=== PATIENT | male | born 1960 | race Caucasian/White ===

== ENCOUNTER 2020-10-12 17:43 | Emergency (ER) | payer BC, SELFPAY ==
[2020-10-12 17:54] VITALS: BP 153/91; PULSE 69; RESP 16; TEMP 36.5; O2SAT 97
--- NOTE | 2020-10-12 18:18 | ED.SKABFB ---
HPI - Skin/Abscess/Foreign Bdy General Chief complaint: Skin/Abscess/Foreign Body Stated complaint: poss shingles Source: patient Mode of arrival: ambulatory Limitations: no limitations History of Present Illness HPI narrative: Patient is a 60-year-old male who presents complaining of itchy rash x3 days to bilateral arms, abdomen and ankles. Patient reports changed laundry detergent earlier this week. He reports using lotion without relief. He denies all other complaints at this time. MD complaint: rash Related Data Home Medications Medication Instructions Recorded Confirmed acidophilus-pectin, citrus 100 cap PO DAILY 10/12/20 10/12/20 [Acidophilus Probiotic] [id number]-vit K 18 tablet PO DAILY 10/12/20 10/12/20 [Adults Multivitamin] Allergies Allergy/AdvReac Type Severity Reaction Status Date / Time No Known Allergies Allergy Verified 10/12/20 17:51 Review of Systems Review of Systems: Narrative: CONSTITUTIONAL: Denies fever, chills, or sweats. EYES: Denies visual changes, redness, or discharge. ENT: Denies rhinorrhea, congestion, sore throat, or otalgia. CARDIOVASCULAR: Denies chest pain, palpitations, or edema. RESPIRATORY: Denies cough or dyspnea. GASTROINTESTINAL: Denies abdominal pain, nausea, vomiting, or diarrhea. GENITOURINARY: Denies dysuria or hematuria. SKIN: Rash to bilateral arms, ankles and abdomen MUSCULOSKELETAL: Denies back pain, joint pain, or myalgia. NEUROLOGIC: Denies headache, numbness, dizziness, or weakness. PSYCHIATRIC: Denies anxiety or depression. [facility] Past Medical History Medical History GERD (gastroesophageal reflux disease) Surgical History Surgical History History of cholecystectomy Family History Family History Other No significant family history Social History Social History (Updated 10/12/20 @ 18:21 by TERESITA Aguirre) Smoking status: Never smoker Alcohol intake: current Substance use: never Living arrangements: with family Occupation/Education: occupation Gender identity (if verbalized by the patient): Male Comments At the time of signature, I have reviewed and agree with nursing past medical, surgical, social, and family history unless otherwise noted. Please see nursing chart for further information. There is no relevant family history pertinent to the presenting complaint. Exam Narrative: Exam Narrative: GENERAL: Well-appearing, well-nourished, and in no acute distress. HEAD: Normocephalic, atraumatic. EYES: EOMI. No redness or drainage. Conjunctiva are normal. ENT: Mucous membranes pink and moist. Nares clear. No rhinorrhea. TMs normal bilaterally. Throat normal. Uvula midline. NECK: AROM. Supple. No lymphadenopathy. CHEST: No respiratory distress. Clear to auscultation. HEART: Regular rate and rhythm. No murmur appreciated. Normal peripheral pulses. GI: Soft, nontender without rebound, or guarding. No distention. Bowel sounds normal in all quadrants. MUSCULOSKELETAL: No bony tenderness. EXTREMITIES: Normal range of motion. No edema. SKIN: Mildly red, raised areas to bilateral arms, abdomen and ankles, no purulent drainage NEURO: No focal deficits. Alert and oriented x3. Gait steady. PSYCH: Normal affect. No signs of depression or anxiety. Course Vital Signs Vital signs: Vital Signs Temperature 36.5 C 10/12/20 17:54 Pulse Rate 69 10/12/20 17:54 Respiratory Rate 16 10/12/20 17:54 Blood Pressure 153/91 H 10/12/20 17:54 Pulse Oximetry 97 10/12/20 17:54 Temperature 36.5 C 10/12/20 17:54 Pulse Rate 69 10/12/20 17:54 Respiratory Rate 16 10/12/20 17:54 Blood Pressure 153/91 H 10/12/20 17:54 Pulse Oximetry 97 10/12/20 17:54 Reviewed. Patient has been instructed to follow-up with his PCP regarding
== END 2020-10-12 18:16 | disposition home or self-care (01) ==
PROVIDERS: Emergency Provider Nurse Practitioner; PCP Internal Medicine
DX: L24.0 Irritant contact dermatitis due to detergents (principal); K21.9 Gastro-esophageal reflux disease without esophagitis
CPT/HCPCS: 99213; G0463

== ENCOUNTER 2021-01-07 10:24 | Observation (INO) | payer BC, SELFPAY ==
--- NOTE | ~2021-01-07 | CT_ITS ---
EXAMINATION: CT abdomen pelvis w con DATE: 01/07/2021 11:49 INDICATION: Upper abdominal pain. Nausea, vomiting, and diarrhea. TECHNIQUE: Computed tomography (CT) of the abdomen and pelvis was performed with 100 mL Omnipaque 350 intravenous contrast. Automated exposure control and iterative reconstruction technique were employe d. The dose-length product was 1336.37 mGy-cm. COMPARISON: None. FINDINGS: The visualized portions of the lung bases demonstrate mild atelectasis. A calcified right l uma nodule is consistent with old granulomatous disease. There are small centrilobular nodules in lef t lower lobe. No pleural effusion. There is a small sliding hiatal hernia. The heart size is normal. No pericardial effusion. The liver and spleen are normal. There are changes of cholecystectomy. The p ancreas and adrenal glands are normal. There are cysts in right kidney measuring up to 2.5 cm. Left k idney is normal. The prostate is mildly enlarged. There are dilated loops of jejunum without focal tr ansition point. The rectum is distended by stool. The appendix is normal. There are no pathologically enlarged lymph nodes. There is no free intraperitoneal fluid. There is a 17 mm sclerotic lesion in r ight ilium, likely a benign bone island. There is moderate lower lumbar spondylosis. IMPRESSION: 1. Small sliding hiatal hernia. 2. Dilated loops of jejunum, likely adynamic ileus. 3. Rectum mildly distended by stool. 4. Small centrilobular nodules in left lung lower lobe, likely inflammation or infection. Reviewed, dictated and finalized at location B.
[2021-01-07 10:35] VITALS: BP 104/87; PULSE 82; RESP 17; TEMP 36.8; O2SAT 97
--- NOTE | 2021-01-07 10:46 | ECG_ITS ---
Measurements Intervals [place] Rate: 74 P: 70 PA: 135 QRS: 4 QRSD: 100 T: -12 QT: 369 QTc: 410 Interpretive Statements SINUS RHYTHM INFERIOR INFARCT, AGE INDETERMINATE BASELINE ARTIFACT- I, II, III, AVF ABNORMAL ECG Electronically Signed On 01-07-2021 12:10:44 CDT by Darrick Ploanco D.O.
[2021-01-07] MEDS: SODIUM CHLORIDE 0.9% IV 1,000 ML 999 ML IV CONT (10:55)
[2021-01-07] MEDS: ONDANSETRON INJ 4 MG/2 ML VIAL IV PUSH ×2 (10:57→20:30)
[2021-01-07 11:01] LABS: Basophils Absolute Auto 0.03 K/mm3 (0.00-0.10); Basophils Percent Auto 0.2 % (0.0-1.0); Eosinophils Absolute Auto 0.08 K/mm3 (0.02-0.50); Eosinophils Percent Auto 0.6 % (1.0-6.0); Hematocrit 44.4 % (40.0-54.0); Hemoglobin 15.3 g/dL (14.0-18.0); Immature Granulocyte Absolute 0.05 K/mm3 (0.00-0.00); Immature Granulocyte Percent A 0.4 % (0.0-0.0); Lymphocytes Absolute Auto 1.46 K/mm3 (1.10-4.50); Mean Corpuscular HGB Conc 34.5 g/dL (32.0-36.0); Mean Corpuscular Hemoglobin 28.3 pg (27.0-31.0); Mean Corpuscular Volume 82.1 fL (78.0-102.0); Mean Platelet Volume 10.2 fl (8.7-11.0); Monocytes Absolute Auto 1.33 K/mm3 (0.10-0.90); Neutrophils Absolute Auto 10.3 K/mm3 (1.7-7.2); Neutrophils Percent Auto 77.8 % (50.0-70.0); Platelet Count Result 214 K/mm3 (150-420); Red Blood Count 5.41 M/mm3 (4.70-6.10); Red Cell Distribution Width 13.1 % (11.6-14.4); White Blood Count 13.3 K/mm3 (4.8-10.8)
[2021-01-07 11:19] LABS: Alanine Aminotransferase 47 U/L (16-63); Albumin Level 3.2 g/dL (3.4-5.0); Alkaline Phosphatase 63 U/L (46-116); Anion Gap 13 mmol/L (8-16); Aspartate Amino Transferase 16 U/L (15-37); Bilirubin,Total 0.4 mg/dL (0.00-1.00); Blood Urea Nitrogen 19 mg/dL (7-18); Calcium 8.7 mg/dL (8.5-10.1); Carbon Dioxide 24 mmol/L (21-32); Chloride 104 mmol/L (98-108); Estimated Glomerular Filt Rate > 60; Glucose 132 mg/dL (70-99); Lipase 102 U/L (73-393); Osmolality Calculated 296 mOsm/kg (285-295); Potassium 3.1 mmol/L (3.5-5.1); Sodium 141 mmol/L (136-145); Total Protein 6.7 g/dL (6.4-8.2); Troponin I 4.2 ng/L (0.00-60.4)
[2021-01-07 11:21] LABS: Lactic Acid Reflex 2.5 mmol/L (0.4-2.0)
--- NOTE | 2021-01-07 12:25 | ED.ABDPAIN ---
HPI - Abdominal Pain General Chief Complaint: Abdominal Pain Stated Complaint: Abdomen Pain Source: patient and family Mode of arrival: ambulatory History of Present Illness HPI narrative: This is a 60-year-old gentleman with no previous past medical history presents from his primary care physician's office with diffuse abdominal pain, crampy with no fever or chills, diffuse with some nausea currently is pain level is tolerable with some some diarrhea no constipation no flank pain no dysuria no chest pain or shortness of breath. Has past surgical history of cholecystectomy. MD elicited complaint: abdominal pain Onset (ago): day(s) Pain Consistency: intermittent Location: diffuse Severity: mild Quality: aching Related Data Home Medications Medication Instructions Recorded Confirmed No Home Medications 01/07/21 01/07/21 Allergies Allergy/AdvReac Type Severity Reaction Status Date / Time No Known Allergies Allergy Verified 10/12/20 17:51 Review of Systems Review of Systems: All systems reviewed & are unremarkable except as noted in HPI and below PMFSH Past Medical History Medical History GERD (gastroesophageal reflux disease) Surgical History Surgical History History of cholecystectomy Family History Family History Other No significant family history Social History Social History (Updated 10/12/20 @ 18:21 by TERESITA Aguirre) Smoking status: Never smoker Alcohol intake: current Substance use: never Gender identity (if verbalized by the patient): Male Exam Const: General: no acute distress HENMT: Head: normal to inspection Eyes: Conjunctivae: conjunctivae normal Pupils: Equal, round and reactive pupils present EOM: EOMs intact bilaterally Neck: Neck: normal visual inspection and no meningeal signs Chest: Chest palpation & inspection: normal inspection of the chest Resp: Effort & Inspection: normal respiratory effort Auscultation: clear to auscultation bilaterally Cardio: Rate: regular rate Rhythm: regular rhythm GI: GI Palp: Yes Soft to palpation and Yes Tenderness to palpation present (GI) : Testes: Testes normal Urinary Catheter: Urinary Catheter: patent and draining Back/Spine/Pelvis: Back: no CVA tenderness Skin: General skin exam: normal color Rashes: no rashes Neuro: General: patient oriented x3, moves all extremities, no meningeal signs and no focal motor deficits Extrem: General: normal to inspection and no pedal edema Psych: Appearance: grossly normal Mental Status: mental status grossly normal Affect: normal affect Course Course Emergency Course: Patient received IV fluids some feels a bit more comfortable and labs and CT scan were reviewed with patient showing possibility of an adynamic ileus and will admit for observation. Vital Signs Vital signs: Vital Signs Temperature 36.8 C 01/07/21 10:35 Pulse Rate 82 01/07/21 10:35 Respiratory Rate 17 01/07/21 10:35 Blood Pressure 104/87 01/07/21 10:35 Pulse Oximetry 97 01/07/21 10:35 Temperature 36.8 C 01/07/21 10:35 Pulse Rate 82 01/07/21 10:35 Respiratory Rate 17 01/07/21 10:35 Blood Pressure 104/87 01/07/21 10:35 Pulse Oximetry 97 01/07/21 10:35 MDM - Abdominal Pain Lab Data Result diagrams: 01/07/21 10:56 01/07/21 10:56 Labs: Lab Results 01/07/21 01/07/21 01/07/21 Range/Units 10:56 10:56 10:56 WBC 13.3 H (4.8-10.8) K/mm3 RBC 5.41 (4.70-6.10) M/mm3 Hgb 15.3 (14.0-18.0) g/dL Hct 44.4 (40.0-54.0) % MCV 82.1 (78.0-102.0) fL MCH 28.3 (27.0-31.0) pg MCHC 34.5 (32.0-36.0) g/dL RDW 13.1 (11.6-14.4) % Plt Count 214 (150-420) K/mm3 MPV 10.2 (8.7-11.0) fl Immature Gran % (Auto) 0.4 H (0.0-0.0) % [place]
[2021-01-07 12:30] LABS: Add Urine Microscopic? NO; Appearance Urine Clear (Clear); Bilirubin Urine Negative (Negative); Blood Urine Negative (Negative); Color Urine Yellow (Yellow); Glucose Urine UA Negative (Negative); Ketones Urine Negative (Negative); Leukocyte Esterase Ur Negative LEU/UL (Negative); Nitrate Urine Negative (Negative); Protein Urine Negative (Negative); Urobilinogen Urine 0.2 mg/dL (0.2-1.0)
[2021-01-07 12:38] VITALS: BP 118/61; PULSE 67; O2SAT 94
[2021-01-07 13:15] VITALS: BMI 34.3
--- NOTE | 2021-01-07 13:15 | ADMGEN ---
This patient, Manan Stoddard, was admitted to 2nd Floor Room 202-2 for adynamic ileus. Patient denies any pain/nausea at admission to floor. Patient/family oriented to hospital policies and general routines including ID bracelet, bed and alarms, visiting hours, pain management, procedures, bathroom and other care routines, personal items, smoking policy, room service/diet, and visiting hours. Information on how to activate the Rapid Response Team has been discussed. Patient/Family are encouraged to report perceived risks to care and to ask questions if they do not understand what they are told or what they should do.
[2021-01-07] MEDS: KCL 20 MEQ/SW 100 ML 100 ML 50 MEQ IVPB (13:37)
[2021-01-07] MEDS: SODIUM CHLORIDE 0.9% IV 1,000 ML 100 ML IV CONT ×2 (13:37→23:32)
[2021-01-07 13:58] LABS: Reflex Lactic Acid Yes or No Add Lactic
--- NOTE | 2021-01-07 15:45 | PM.IMHP ---
H&P: HPI History of Present Illness Date/Time: 01/07/21 15:45 this is a 60-year-old gentleman that presented to our ED with complaints of abdominal pain. Patient has a past medical history of GERD. According to patient Thursday he started to experience abdominal pain while at work and later developed diarrhea. He also noted that he had a decreased appetite, patient also noted that he felt nausea. Patient noted he continued to have abdominal pain with diarrhea and decided to take some Pepto-Bismol assuming it was acid reflux. Afterwards patient noted that his stool remained runny and black in color. Patient continued to have the symptoms and decided to visit his primary care physician today. Imaging was completed and it was determined that the patient has adynamic ileus. Patient WBC 13.3 hemoglobin 15.3 hematocrit 44.4, platelets 214, sodium 141, potassium 3.1, BUN 19, creatinine 1.15, glucose 132, lactic acid 2.5. Patient continues to complain of epigastric pain. The patient denies SOB, CP, palpitation, extremity numbness, lightheadedness, dizziness,, chills, or fever. Patient also noted that for the last month he has been experiencing inconsistent bowel movement patient notes that he would have diarrhea 1 day constipation the next day and increased bowel movements Observation Time spent 60 minutes Chief Complaint: Abdominal pain Review of Systems Review of Systems: Narrative: A 14 organ system Review of Systems was performed and pertinent positives included in the HPI, otherwise remaining ROS is negative. [facility] Past Medical History Medical History GERD (gastroesophageal reflux disease) Surgical History Surgical History History of cholecystectomy Family History Family History Other No significant family history Social History Social History (Updated 10/12/20 @ 18:21 by TERESITA Aguirre) Smoking packs per day: 0.5 Smoking cigarettes per day: 10.0 Years smoked: 2 Smoking pack-years: 1.00 Smoking status: Former smoker Tobacco type: cigarettes Alcohol intake: never Substance use: never Substance use type: does not use Gender identity (if verbalized by the patient): Male Sexual Orientation (if Verbalized by the Patient): Straight or Heterosexual Spiritual care concerns: No Meds Home Medications and Allergies Home Medications Medication Instructions Recorded Confirmed Type No Home Medications 01/07/21 01/07/21 History Allergies Allergy/AdvReac Type Severity Reaction Status Date / Time No Known Allergies Allergy Verified 10/12/20 17:51 Vital Signs Vital Signs - 24 hr 01/07/21 10:35 01/07/21 12:38 Temperature 98.2 F Pulse Rate 82 67 Respiratory Rate 17 Blood Pressure 104/87 118/61 Pulse Oximetry 97 94 Exam Narrative: Exam Narrative: GENERAL: This is a well-nourished, well-developed patient, in no apparent distress. HEAD: normocephalic, atraumatic. EYES: PERRL. Sclera clear/white. Vision is grossly intact. EARS: External ears normal, auditory canals clear and without drainage, TMs normal without perforation. Hearing grossly intact. NOSE: External nose normal with no obvious nasal discharge, nares without redness, no rhinorrhea. THROAT: Mucous membranes moist, posterior pharynx clear. NECK: Neck supple, non-tender without lymphadenopathy, masses or thyromegaly. CARDIOVASCULAR: Regular rate and rhythm without murmurs, gallops, or rubs. RESPIRATORY: Clear to auscultation. Breath sounds equal bilaterally. No wheezes, rales, or rhonchi. GASTROINTESTINAL: Abdomen soft and tender nondistended. Hyperactive bowel sounds. No hepato-splenomegaly, or palpable masses. SKIN: warm, intact with no suspicious lesions or rash, good texture and turgor. NEURO: awake, alert, and oriented to person, [place]
[2021-01-07 15:50] VITALS: BP 130/86; PULSE 64; RESP 18; TEMP 37.7; O2SAT 96
[2021-01-07 16:35] VITALS: PULSE 60
--- NOTE | 2021-01-07 19:30 | PC.NURSE ---
Patient is not experiencing nausea and/or vomiting at this time. experiencing abdominal discomfort at this time but want to wait on pain medication
[2021-01-07 20:00] VITALS: BP 113/75; PULSE 59; RESP 14; TEMP 37; O2SAT 95
--- NOTE | 2021-01-07 20:30 | PC.NURSE ---
Patient experiencing abdominal discomfort. Given zofran to attempt to improve discomfort. Afforded some relief but continues to have discomfort. Has not had BM. telemetry shows sinus bradycardia
--- NOTE | 2021-01-07 22:00 | PC.NURSE ---
Patient requested IV tylenol for pain rated at 5 on scale of 1 to 10. Did not want to take morphine on chance it would worsen symptoms. refused tylenol suppository
[2021-01-07] MEDS: diphenhydrAMINE HCl INJ 50 MG/ML VIAL IV PUSH (22:24)
--- NOTE | 2021-01-07 23:21 | PC.NURSE ---
Patient pain level 0 on FLACC. Appears to be resting. Has not had any BM on this shift. No nausea of vomiting observed.
[2021-01-08] VITALS: BP 113/86; PULSE 45; PULSE 47; RESP 14; TEMP 37; O2SAT 97
--- NOTE | 2021-01-08 00:19 | PC.NURSE ---
Improvement of pain symptoms with IV tylenol. Appears to be resting. VS stable with telemetry showing sinus bradycardia.
--- NOTE | 2021-01-08 01:18 | PC.NURSE ---
Improvement in pain with IV tylenol. No report of nausea or vomiting.
--- NOTE | 2021-01-08 02:17 | PC.NURSE ---
Patient resting. Continues on telemetry showing sinus bradycardia. No nausea or vomiting present.
--- NOTE | 2021-01-08 03:16 | PC.NURSE ---
Patient reports improvement with symptoms. No nausea or vomiting. Pain decreased with abdominal area blow machine tender starch spraying to touch
[2021-01-08 04:00] VITALS: BP 103/70; PULSE 49; PULSE 51; RESP 14; TEMP 36.4; O2SAT 97
--- NOTE | 2021-01-08 04:21 | PC.NURSE ---
Patient had dark BM with foul odor. Part was liquid but solid amount present also . Stool for occult blood collected
[2021-01-08 04:52] LABS: Occult Blood Negative (Negative)
--- NOTE | 2021-01-08 05:36 | PC.NURSE ---
Patient has solid bowel movement. Color was green/brown instead of blackish. No nausea or vomiting. Imporvements in symptoms
[2021-01-08 05:47] LABS: Basophils Absolute Auto 0.03 K/mm3 (0.00-0.10); Basophils Percent Auto 0.4 % (0.0-1.0); Eosinophils Absolute Auto 0.23 K/mm3 (0.02-0.50); Hematocrit 39.1 % (40.0-54.0); Immature Granulocyte Absolute 0.02 K/mm3 (0.00-0.00); Immature Granulocyte Percent A 0.3 % (0.0-0.0); Lymphocytes Absolute Auto 2.48 K/mm3 (1.10-4.50); Mean Corpuscular HGB Conc 33.2 g/dL (32.0-36.0); Mean Corpuscular Hemoglobin 28.1 pg (27.0-31.0); Mean Corpuscular Volume 84.4 fL (78.0-102.0); Mean Platelet Volume 10.5 fl (8.7-11.0); Monocytes Absolute Auto 0.92 K/mm3 (0.10-0.90); Monocytes Percent Auto 11.9 % (2.0-11.0); Neutrophils Absolute Auto 4.1 K/mm3 (1.7-7.2); Neutrophils Percent Auto 52.4 % (50.0-70.0); Platelet Count Result 191 K/mm3 (150-420); Red Blood Count 4.63 M/mm3 (4.70-6.10); Red Cell Distribution Width 13.3 % (11.6-14.4); White Blood Count 7.7 K/mm3 (4.8-10.8)
[2021-01-08 06:09] LABS: Lactic Acid Reflex 0.6 mmol/L (0.4-2.0)
[2021-01-08 06:16] LABS: Alanine Aminotransferase 34 U/L (16-63); Albumin Level 2.7 g/dL (3.4-5.0); Alkaline Phosphatase 52 U/L (46-116); Anion Gap 9 mmol/L (8-16); Aspartate Amino Transferase 11 U/L (15-37); Bilirubin,Total 0.5 mg/dL (0.00-1.00); Blood Urea Nitrogen 14 mg/dL (7-18); Carbon Dioxide 26 mmol/L (21-32); Chloride 108 mmol/L (98-108); Estimated CRCL calculation 91 ml/min; Estimated Glomerular Filt Rate > 60; Glucose 101 mg/dL (70-99); Osmolality Calculated 296 mOsm/kg (285-295); Potassium 3.4 mmol/L (3.5-5.1); Sodium 143 mmol/L (136-145); Total Protein 5.6 g/dL (6.4-8.2)
[2021-01-08 08:00] VITALS: BP 124/71; PULSE 50; PULSE 56; RESP 18; TEMP 36.9; O2SAT 96
[2021-01-08] MEDS: POTASSIUM CHLORIDE 20 MEQ TABLET PO (08:36)
[2021-01-08] MEDS: SODIUM CHLORIDE 0.9% IV 1,000 ML 100 ML IV CONT (08:37)
[2021-01-08 12:00] VITALS: PULSE 51
--- NOTE | 2021-01-08 14:04 | PM.DS ---
DS: Admitting Diagnosis Admitting Diagnosis Admitting Diagnosis: Adynamic Ileus DS: Discharge Diagnosis Discharge Diagnosis (1) Adynamic ileus: Code(s): K56.0 - Paralytic ileus Status: Acute Assessment and Plan: Imaging indicates Dilated loops of jejunum, likely adynamic ileus. Patient will remain n.p.o. Continue pain medication morphine Continue IV fluids Occult blood pending Continue Zofran Lactic acid elevated 2.5 01/08/2021 Pt was started on Full liquids this AM and for lunch he had a regular diet and tolerated both well. Pt denies abdominal pain, states he still has some diarrhea, instructed Pt to f/u with PCP and to increase fiber intake in his diet. (2) GERD (gastroesophageal reflux disease): Code(s): K21.9 - Gastro-esophageal reflux disease without esophagitis Status: Acute Assessment and Plan: Will need to start pantoprazole DS: Summary Hospital Course Hospital Course: Abdominal pain resolved, tolerating food well Time Spent with Patient Time attestation: Total time spent providing and/or coordinating discharge services: < 30 minutes Exam Const: General: cooperative, comfortable, no acute distress, alert and awake Nutritional Appearance: overweight HENMT: Head: normal to inspection and normocephalic Ears: hearing grossly normal bilaterally Eyes: General: appearance normal, both eyes and all related structures Neck: Neck: normal visual inspection and no JVD Resp: Effort & Inspection: normal respiratory effort Auscultation: clear to auscultation bilaterally Cardio: Rate: regular rate GI: GI Palp: Yes Soft to palpation and Yes Tenderness to palpation present (GI) (slight epigastric tenderness, much improved per Pt) Auscultation: Hypoactive bowel sounds present (Pt has been NPO) Skin: General skin exam: normal color Lesions: no lesions Rashes: no rashes Neuro: General: oriented to person, oriented to place and oriented to time Cranial nerves: Yes CN's II-XII intact bilaterally (grossly intact) Extrem: General: normal to inspection and no pedal edema Psych: Appearance: grossly normal Mental Status: mental status grossly normal Speech and movement: Normal speech and movement present DS: Data Data Completed and Pending Labs on day of discharge: Labs from last 24 hours 01/08/21 01/08/21 01/08/21 05:29 05:29 05:29 WBC 7.7 RBC 4.63 L Hgb 13.0 L Hct 39.1 L MCV 84.4 MCH 28.1 MCHC 33.2 RDW 13.3 Plt Count 191 MPV 10.5 Immature Gran % (Auto) 0.3 H Neut % (Auto) 52.4 Lymph % (Auto) 32.0 Ada % (Auto) 11.9 H Eos % (Auto) 3.0 Baso % (Auto) 0.4 Lymph # (Auto) 2.48 Ada # (Auto) 0.92 H Eos # (Auto) 0.23 Baso # (Auto) 0.03 Abs Immat Gran (auto) 0.02 H Absolute Neuts (auto) 4.1 Absolute Nucleated RBC 0.00 Nucleated RBC % 0.0 Sodium 143 Potassium 3.4 L Chloride 108 Carbon Dioxide 26 Anion Gap 9 BUN 14 Creatinine 1.01 Estim Creat Clear Calc 91 Estimated GFR > 60 Glucose 101 H Calculated Osmolality 296 H Lactic Acid 0.6 Calcium 8.0 L Total Bilirubin 0.5 AST 11 L ALT 34 Alkaline Phosphatase 52 Total Protein 5.6 L Albumin 2.7 L Stool Occult Blood 01/08/21 04:20 WBC RBC Hgb Hct MCV MCH MCHC RDW Plt Count MPV Immature Gran % (Auto) Neut % (Auto) Lymph % (Auto) Ada % (Auto) Eos % (Auto) Baso % (Auto) Lymph # (Auto) Ada # (Auto) Eos # (Auto) Baso # (Auto) Abs Immat Gran (auto) Absolute Neuts (auto) Absolute Nucleated RBC Nucleated RBC % Sodium Potassium Chloride Carbon Dioxide Anion Gap BUN Creatinine Estim Creat Clear Calc Estimated GFR Glucose Calculated Osmolality Lactic Acid Calcium Total Bilirubin AST ALT Alkaline Phosphatase Total Protein Albumin Stool Occult Blood Negative Discharge Plan Discharge Attending physician on dis
--- NOTE | 2021-01-08 14:54 | PC.NURSE ---
Patient discharged home with personal items and transported by spouse via personal vehicle. Discharge instructions given to patient and spouse with understanding acknowledged. IV to Rt. hand removed and bleeding stopped prior to discharge.
--- NOTE | 2021-01-09 12:37 | PC.NURSE ---
Discharge call back completed, states is doing well, no questions or concerns regarding discharge process or instructions, states nurses were excellent and took very good care of him.
== END 2021-01-08 14:55 | disposition home or self-care (01) ==
LOC: CHSED 12:28 → CHS2ND 12:38
PROVIDERS: Nurse Practitioner; Admitting Provider Emergency Medicine; Emergency Provider Emergency Medicine; PCP Internal Medicine; Visit Provider Emergency Medicine
DX: K56.0 Paralytic ileus (principal); K21.9 Gastro-esophageal reflux disease without esophagitis; Z90.49 Acquired absence of other specified parts of digestive tract; Z87.891 Personal history of nicotine dependence; E87.6 Hypokalemia
CPT/HCPCS: 36415; 74177; 80053; 81003; 83605; 83690; 84484; 85025; 93005; 96361; 96365; 96366; 96367; 96374; 96375; 96376; 99285; A9270; G0378; J0131; J1200; J2405; J3480; J7030; Q9967

== ENCOUNTER 2021-04-12 00:14 | Day surgery (SDC) | payer BC, SELFPAY ==
[2021-04-03 14:59] VITALS: BMI 34.3
[2021-04-12 06:45] VITALS: BP 132/83; PULSE 62; RESP 16; TEMP 36.1; O2SAT 98; BMI 33.6
[2021-04-12] MEDS: LACTATED RINGERS 1,000 ML 150 ML IV CONT (07:05)
--- NOTE | 2021-04-12 07:23 | P.CONGI_ITS ---
Assessment and Plan Assessment and plan (1) Abdominal pain: Code(s): R10.9 - Unspecified abdominal pain Status: Acute Assessment and Plan: Patient with abdominal pain and diarrhea. For this reason colonoscopy will be performed. Fiber supplementation is advised at this time. Further recommendations may be given after endoscopy. Suspect he had infectious etiology that may be resolving at this time. (2) Gastroenteritis: Code(s): K52.9 - Noninfective gastroenteritis and colitis, unspecified Status: Acute GI Consult Note Consult date/time: 04/12/21 07:23 HPI: Manan Stoddard is a 60 year old male Presents for colonoscopy. Patient has a recent bout of abdominal pain diarrhea. Patient had extended course of diarrhea that lasted for a month. He was hospitalized for a day and a half. To day presents for GI endoscopy to assess more thoroughly. He states that abdominal pain is subsided diarrhea has lessened since that severe episode. Most recent colonoscopy was 5 years ago. Review of Systems Review of Systems: All systems reviewed & are unremarkable except as noted in HPI and below PMFSH Past Medical History Medical History GERD (gastroesophageal reflux disease) Surgical History Surgical History History of cholecystectomy Family History Family History Other No significant family history Social History Social History Smoking packs per day: 0.5 Smoking cigarettes per day: 10.0 Years smoked: 2 Smoking pack-years: 1.00 Smoking status: Former smoker Tobacco type: cigarettes Alcohol intake: current Drinks per week: 4 Alcohol use details: Occasional weekends Substance use: never Substance use type: does not use Living arrangements: with family Gender identity (if verbalized by the patient): Male Spiritual care concerns: No Meds Home Medications and Allergies Home Medications Medication Instructions Recorded Confirmed Type lactobacillus combination no.8 300,000 cell PO DAILY 04/03/21 04/12/21 History [Adult Probiotic] multivit with min-folic acid 1 tablet PO DAILY 04/03/21 04/12/21 History [Adult One Daily Multivitamin] Allergies Allergy/AdvReac Type Severity Reaction Status Date / Time No Known Allergies Allergy Verified 04/12/21 06:52 Vital Signs Vital Signs - 24 hr 04/12/21 06:45 Temperature 97.0 F L Pulse Rate 62 Respiratory Rate 16 Blood Pressure 132/83 Pulse Oximetry 98 Exam Narrative: Physical exam reveals patient be alert. Vital signs are stable. HEENT exam is unremarkable. Patient is anicteric. Lungs are clear to auscultation and percussion. Heart is without murmur or extra sounds. Abdominal exam bowel sounds are present soft nontender with no organomegaly. Digital external rectal exam is normal.
--- NOTE | 2021-04-12 07:51 | WPDANESEPPF ---
Anes - Initial Pre Proc Eval Procedure: Operation Date: 04/12/21 08:00 Proposed Procedures p Colonoscopy - Jairo Guajardo MD Date/Time: 04/12/21 07:51 Surgeon: Jairo Guajardo MD Pre Op Diagnosis: abdominal pain Patient Data Age: 60 Gender: M Height: 1.85 m Weight: 115.6 kg Last Vital Signs Temp 97.0 F L 04/12/21 06:45 Pulse 62 04/12/21 06:45 Resp 16 04/12/21 06:45 BP 132/83 04/12/21 06:45 Pulse Ox 98 04/12/21 06:45 Allergies Allergy/AdvReac Type Severity Reaction Status Date / Time No Known Allergies Allergy Verified 04/12/21 06:52 Home Medications Medication Instructions Recorded Confirmed Type lactobacillus combination no.8 300,000 cell PO DAILY 04/03/21 04/12/21 History [Adult Probiotic] multivit with min-folic acid 1 tablet PO DAILY 04/03/21 04/12/21 History [Adult One Daily Multivitamin] Patient hx anesthesia problems: none Family hx anesthesia problems: none PMFSH Past Medical History Medical History GERD (gastroesophageal reflux disease) Surgical History Surgical History History of cholecystectomy Family History Family History Other No significant family history Social History Social History Smoking packs per day: 0.5 Smoking cigarettes per day: 10.0 Years smoked: 2 Smoking pack-years: 1.00 Smoking status: Former smoker Tobacco type: cigarettes Alcohol intake: current Drinks per week: 4 Alcohol use details: Occasional weekends Substance use: never Substance use type: does not use Living arrangements: with family Gender identity (if verbalized by the patient): Male Spiritual care concerns: No Anes - Eval Final PreProcedure Day of Procedure 04/12/21 07:51 Patient weight: obese Heart: regular rate and rhythm Lungs: clear to auscultation Airway: Mallampati scale class II Neurological: alert and oriented Last oral intake: >/= 8 hours ASA classification: III Emergent: no Anesthetic plan: proceed Anesthesia type and monitoring: general GIVS and standard monitoring Informed Consent: The patient's anesthetic plan and its attendant risks and benefits were discussed with the patient/family/POA. Questions were solicited and answers provided to the satisfaction of the patient/family/POA.
[2021-04-12 08:07] VITALS: BP 97/60; PULSE 48; RESP 16; O2SAT 98
[2021-04-12 08:17] VITALS: BP 116/80; PULSE 48; RESP 16; O2SAT 98
[2021-04-12 08:27] VITALS: BP 129/82; PULSE 44; RESP 14; O2SAT 98
== END 2021-04-12 08:38 | disposition home or self-care (01) ==
PROVIDERS: PCP Internal Medicine; Visit Provider Internal Medicine Gastroenterology
PROC: 0DJD8ZZ Inspection of Lower Intestinal Tract, Via Natural or Artificial Opening Endoscopic (ICD-10-PCS; CPT 45378; principal; 2021-04-12 08:00)
DX: Z12.11 Encounter for screening for malignant neoplasm of colon (principal); K63.5 Polyp of colon; K64.8 Other hemorrhoids; R10.84 Generalized abdominal pain; R19.7 Diarrhea, unspecified; K21.9 Gastro-esophageal reflux disease without esophagitis; Z87.891 Personal history of nicotine dependence; E66.9 Obesity, unspecified; Z68.33 Body mass index [BMI] 33.0-33.9, adult
CPT/HCPCS: 45385; 88305; J2704; J7120

== ENCOUNTER 2022-12-17 07:53 | Outpatient (CLI) | payer BC, SELFPAY ==
[2022-12-17 08:12] LABS: Basophils Absolute Auto 0.05 K/mm3 (0.00-0.10); Basophils Percent Auto 0.6 % (0.0-1.0); Eosinophils Absolute Auto 0.28 K/mm3 (0.02-0.50); Eosinophils Percent Auto 3.4 % (1.0-6.0); Hematocrit 45.2 % (40.0-54.0); Immature Granulocyte Absolute 0.02 K/mm3 (0.00-0.00); Immature Granulocyte Percent A 0.2 % (0.0-0.0); Lymphocytes Absolute Auto 2.69 K/mm3 (1.10-4.50); Lymphocytes Percent Auto 32.6 % (18.0-42.0); Mean Corpuscular HGB Conc 33.2 g/dL (32.0-36.0); Mean Corpuscular Hemoglobin 28.4 pg (27.0-31.0); Mean Corpuscular Volume 85.4 fL (78.0-102.0); Mean Platelet Volume 10.8 fl (8.7-11.0); Monocytes Absolute Auto 0.88 K/mm3 (0.10-0.90); Monocytes Percent Auto 10.7 % (2.0-11.0); Neutrophils Absolute Auto 4.3 K/mm3 (1.7-7.2); Neutrophils Percent Auto 52.5 % (50.0-70.0); Platelet Count Result 221 K/mm3 (150-420); Red Blood Count 5.29 M/mm3 (4.70-6.10); White Blood Count 8.3 K/mm3 (4.8-10.8)
[2022-12-17 08:40] LABS: Alanine Aminotransferase 68 U/L (16-63); Albumin Level 3.7 g/dL (3.4-5.0); Alkaline Phosphatase 77 U/L (46-116); Anion Gap 7 mmol/L (8-16); Aspartate Amino Transferase 21 U/L (15-37); Bilirubin,Total 0.3 mg/dL (0.00-1.00); Blood Urea Nitrogen 14 mg/dL (7-18); CRP 1.8 mg/dL (0.0-0.9); Calcium 8.9 mg/dL (8.5-10.1); Carbon Dioxide 27 mmol/L (21-32); Chloride 107 mmol/L (98-108); Estimated Glomerular Filt Rate > 60; Glucose 109 mg/dL (70-99); Osmolality Calculated 293 mOsm/kg (285-295); Potassium 4.1 mmol/L (3.5-5.1); Sodium 141 mmol/L (136-145); Total Protein 7.2 g/dL (6.4-8.2)
[2022-12-22 19:05] LABS: Hepatitis A Antibody IgM Nonreactive; Hepatitis B Core Antibody Nonreactive (Nonreactive); Hepatitis B Surface Antigen Nonreactive (Nonreactive); Hepatitis C Signal to Cutoff 0.03 ratio (<1.00); Hepatitis C Virus Antibody Nonreactive (Nonreactive)
== END 2022-12-17 07:54 | disposition home or self-care (01) ==
LOC: CHSLAB 07:57
PROVIDERS: PCP Internal Medicine; Visit Provider Internal Medicine
DX: U07.1 COVID-19 (principal); R19.7 Diarrhea, unspecified; R51.9 Headache, unspecified; R53.83 Other fatigue
CPT/HCPCS: 36415; 80053; 80074; 85025; 86140